=== PATIENT | female | born 1995 | race Caucasian/White ===

== ENCOUNTER 2017-06-29 19:36 | Emergency (ER) | payer BC ==
[2017-06-29 20:10] VITALS: BP 92/56
[2017-06-29] MEDS ORDERED: Cephalexin CAP* 500 MG PO ONE (20:53)
--- NOTE | 2017-06-29 20:54 | UC ---
Skin Complaint HPI - HPI Summary HPI Summary: rash on left lower leg and scattered follicular rash on both thighs---not other [place]ard sick or febrile---no recent ill exposures - History of Current Complaint Hx Obtained From: Patient Hx Last Menstrual Period: 05/22 ?: No Onset/Duration: Sudden Onset, Lasting Days Timing: Constant Onset Severity: Mild Current Severity: Mild Location: Diffuse Aggravating Factor(s): Nothing Alleviating Factor(s): Nothing Associated Signs & Symptoms: Positive: Negative Similar Episode/Dx as: similar episode in the past diagnosis as a staff infection treated with Bactrim this summer (that is when patients Sulfa allergy was discovereed) <Daphne Torres - Last Filed: 06/29/17 21:29> <Linda Aragon - Last Filed: 06/30/17 07:02> - History of Current Complaint Chief Complaint: UCRash Time Seen by Provider: 06/29/17 20:35 Stated Complaint: RASH - Allergy/Home Medications Allergies/Adverse Reactions: Allergies Allergy/AdvReac Type Severity Reaction Status Date / Time Sulfa Antibiotics Allergy Rash Verified 06/29/17 20:10 Home Medications: Home Medications Dapsone (Topical) [Aczone] 7.5 % EX 06/29/17 [History] Review of Systems Constitutional: Negative Skin: Rash - red discrete ( pustular in some locations) Eyes: Negative ENT: Negative Respiratory: Negative Cardiovascular: Negative Gastrointestinal: Negative Genitourinary: Negative Motor: Negative Neurovascular: Negative Musculoskeletal: Negative Neurological: Negative Is Patient Immunocompromised?: No All Other Systems Reviewed And Are Negative: Yes <Daphne Torres - Last Filed: 06/29/17 21:29> PMH/Surg Hx/FS Hx/Imm Hx Previously Healthy: Yes - Surgical History Surgical History: None - Family History Known Family History: Positive: None - Social History Occupation: Student Lives: Dormitory/Roommates Alcohol Use: Occasionally Substance Use Type: None Smoking Status (MU): Never Smoked Tobacco <Daphne Torres - Last Filed: 06/29/17 21:29> Physical Exam Triage Information Reviewed: Yes Appearance: Well-Appearing, No Pain Distress, Well-Nourished Vital Signs: Initial Vital Signs Temp 98.4 F 06/29/17 20:07 Pulse 65 06/29/17 20:07 Resp 18 06/29/17 20:07 BP 92/56 06/29/17 20:07 Pulse Ox 99 06/29/17 20:07 Vital Signs Reviewed: Yes Eye Exam: Normal Eyes: Positive: Conjunctiva Clear ENT Exam: Normal ENT: Positive: Normal ENT inspection, Hearing grossly normal, TMs normal. Negative: Nasal congestion, Nasal drainage, Trismus, Muffled/hoarse voice Dental Exam: Normal Neck exam: Normal Neck: Positive: Supple, Nontender Respiratory Exam: Normal Respiratory: Positive: Chest non-tender, No respiratory distress, No accessory muscle use Cardiovascular Exam: Normal Cardiovascular: Positive: RRR, Pulses Normal, Brisk Capillary Refill Musculoskeletal Exam: Normal Musculoskeletal: Positive: Strength Intact, ROM Intact, No Edema Neurological Exam: Normal Neurological: Positive: Alert, Muscle Tone Normal Psychological Exam: Normal Skin: Positive: rashes - discrete follicular lesions on thighs (some with pustulas) patch of erythema on left lower leg <Daphne Torres - Last Filed: 06/29/17 21:29> Vital Signs: Initial Vital Signs Temp 98.4 F 06/29/17 20:07 Pulse 65 06/29/17 20:07 Resp 18 06/29/17 20:07 BP 92/56 06/29/17 20:07 Pulse Ox 99 06/29/17 20:07 <Linda Aragon - Last Filed: 06/30/17 07:02> Course/Dx - Course Course Of Treatment: Keflex, mild soap and water follow at [facility]-re check prn - Differential Diagnoses - Skin Complaint Differential Diagnoses: Allergic Reaction, Cellulitis, Contact Dermatitis, Impetigo - Diagnoses Provider Diagnoses: Folliculitis <Daphne Torres - Last Filed: 06/29/17 21:29> Discharge <Daphne Torres - Last Filed: 06/29/17 21:29> <Linda Aragon - Last Filed: 06/30/17 07:02> - Discharge Plan Condition: Stable Disposition: HOME Prescriptions: Cephalexin CAP* [Keflex CAP*] 500 mg PO QID #28 cap Patient Education Materials: Folliculitis (ED) Referrals: [facility] @ [Outside] - 4 Days Attestation Statement User Type: Provider - I was available for consult. This patient was seen by the MOHINDER. The patient was not presented to, seen by, or examined by me. -Yary <Linda Aragon - Last Filed: 06/30/17 07:02>
== END 2017-06-29 21:05 | disposition home or self-care (01) ==
LOC: UCEAST 19:36
DX: L73.9 Follicular disorder, unspecified (principal)
CPT/HCPCS: 99202; A9270-GY; G0463